=== PATIENT | female | born 1980 | race Caucasian/White ===

== ENCOUNTER → 2016-10-21 | Outpatient (CLI) | payer OTHER ==
--- NOTE | 2016-10-21 15:19 | KCIC ---
Ultrasound Pelvis Indication:Reason For Study Reason: / Spl. Instructions: / History: Technique: Multiple real-time grayscale images were obtained over the pelvis transabdominally and transvaginally. Color Doppler imaging was utilized. Findings: The uterus is normal in size measuring 8.6 x 6.2 x 5.3 cm. There is a single intrauterine gestational sac with mean diameter measuring 0.52 centimeters. This corresponds to an estimated gestational age of 5 weeks 2 days. The pole is not yet identified. The right ovary measures 3.2 x 2.0 x 2.7cm. No abnormal right ovarian lesions are identified. Normal blood flow is identified. The left ovary measures 2.4 x 1.5 x 1.7cm. No abnormal left ovarian lesions are identified. Normal blood flow is identified. No pelvic free fluid is identified. Impression: - Intrauterine gestational sac with estimated gestational age 5 weeks 2 days. The pole is not yet visualized. Electronically signed by: Kvng Gaona (Oct 21, 2016 15:18:51)
== END | disposition home or self-care (01) ==
LOC: KCIC US 14:34
PROVIDERS: ATTEND Nurse Practitioner Women's Health
DX: Z32.01 Encounter for pregnancy test, result positive (principal); Z3A.14 14 weeks gestation of pregnancy
CPT/HCPCS: 76801; 76817

== ENCOUNTER → 2016-11-01 | Outpatient (CLI) | payer OTHER ==
--- NOTE | 2016-11-04 09:46 | KCIC ---
PROCEDURE Obstetrics sonogram. HISTORY Viability scan. TECHNIQUE Trans abdominal and transvaginal sonographic imaging of the pelvis was performed. COMPARISON 10/21/2016. FINDINGS There is a single intrauterine gestational sac and pole with yolk sac. The crown-rump length is 0.69 cm, corresponding with an estimated gestational age of 6 weeks and 4 days. The heart rate is 114 beats per minute. The uterus measures 9.2 x 5.7 x 5.5 cm. The right ovary measures 3.4 x 2.8 x 1.6 cm. The left ovary measures 1.9 x 2.6 x 1.5 cm. There is normal blood flow within both ovaries. There is a suspected 1.9 cm right corpus luteum cyst. There is a hypoechoic region within the posterior lower uterine segment measuring 7 mm. There is no pelvic free fluid. IMPRESSION 1. Single intrauterine fetus with an estimated gestational age based on ultrasound measurements of 6 weeks and 4 days and heart rate of 114 beats per minute. 2. Suspected 1.9 cm right corpus luteum cyst. 3. 7 mm hypoechoic region within the posterior lower uterine segment. This may be due to a small fibroid. Electronically signed by: Amanda Wahl (Nov 04, 2016 09:45:31)
== END | disposition home or self-care (01) ==
LOC: KCIC US 15:41
PROVIDERS: ATTEND Nurse Practitioner Women's Health
DX: Z34.81 Encounter for supervision of other normal pregnancy, first trimester (principal)
CPT/HCPCS: 76801

== ENCOUNTER → 2016-11-07 | Outpatient (CLI) | payer OTHER | END | disposition home or self-care (01) | LOC: SPEC 11:07 | PROVIDERS: ATTEND Nurse Practitioner Women's Health | DX: Z11.3 Encounter for screening for infections with a predominantly sexual mode of transmission (principal); R82.99 Other abnormal findings in urine | CPT/HCPCS: 87086; 87491; 87591 ==

== ENCOUNTER → 2016-12-02 | Outpatient (CLI) | payer OTHER ==
[2016-12-02 11:40] LABS: FREE T4 0.87 ng/dL (0.76-1.46)
== END | disposition home or self-care (01) ==
LOC: LAB 10:35
PROVIDERS: ATTEND Nurse Practitioner Women's Health
DX: Z34.81 Encounter for supervision of other normal pregnancy, first trimester (principal); Z20.2 Contact with and (suspected) exposure to infections with a predominantly sexual mode of transmission
CPT/HCPCS: 36415; 84439; 84443; 84481; 86593; 86703; 86762; 86803; 86900; 86901; 87340; 87341; 87491; 87591

== ENCOUNTER 2017-01-17 02:49 | Emergency (ER) | payer OTHER ==
[~2017-01-17] VITALS: Ht 160 cm; Wt 75.3 kg
--- NOTE | 2017-01-17 03:20 | PHYS DOC ---
Adult General Chief Complaint Chief Complaint: ABDOMINAL PAIN IN HPI HPI Patient is a 36 year old female who presents with complaint of right lower quadrant abdominal pain. Patient is approximately 17 weeks . Patient was seen yesterday morning at [facility] due to complaint of right lower quadrant pain. Patient had an ultrasound which showed a viable intrauterine . Blood work and urine did not show any significant abnormalities. Patient was treated for her pain. Patient was cautioned due to proximity of pain that if symptoms worsened that she would need reevaluation as she was told appendicitis could not be ruled out at that time. Patient states that she has had associated nausea. Patient stated that 2 days ago she had vomiting but did not have any vomiting yesterday. Patient states that she has had low-grade fever of 99.9F. Patient denies cough or chills. Patient states that she took Tylenol yesterday afternoon but has not had any additional medication within the last few hours for pain. Patient rates pain currently as 7 out of 10. Patient follows in the office of Dr. Briones for her care. Review of Systems Review of Systems Constitutional: Denies fever or chills [] Eyes: Denies change in visual acuity, redness, or eye pain [] HENT: Denies nasal congestion or sore throat [] Respiratory: Denies cough or shortness of breath [] Cardiovascular: Denies chest pain or edema [] GI: Abdominal pain, nausea, currently denies vomiting, bloody stools or diarrhea [] : Denies dysuria or hematuria [] Musculoskeletal: Denies back pain or joint pain [] Integument: Denies rash or skin lesions [] Neurologic: Denies headache, focal weakness or sensory changes [] Current Medications Current Medications Current Medications Medications (Trade) Dose Ordered Sig/[facility] Start Time Stop Time Status Last Admin Dose Admin Acetaminophen (Tylenol) 1,000 mg 1X ONCE 01/17/17 03:45 01/17/17 03:46 DC 01/17/17 03:44 1,000 MG Azithromycin (Zithromax) 1,000 mg 1X ONCE 01/17/17 04:30 01/17/17 04:31 DC Ceftriaxone Sodium (Rocephin Im) 250 mg 1X ONCE 01/17/17 04:30 01/17/17 04:31 DC Ondansetron HCl (Zofran Odt) 4 mg 1X ONCE 01/17/17 03:45 01/17/17 03:46 DC 01/17/17 03:44 4 MG Potassium Chloride (Klor-Con) 40 meq 1X ONCE 01/17/17 04:30 01/17/17 04:31 DC Allergies Allergies Allergies Coded Allergies Type Severity Reaction Last Updated Verified No Known Drug Allergies 01/17/17 No Physical Exam Physical Exam Constitutional: Well developed, well nourished, no acute distress, non-toxic appearance. [] HENT: Normocephalic, atraumatic, bilateral external ears normal, oropharynx moist, no oral exudates, nose normal. [] Eyes: PERRLA, EOMI, conjunctiva normal, no discharge. [] Neck: Normal range of motion, no tenderness, supple, no stridor. [] Cardiovascular:Heart rate regular rhythm, no murmur [] Lungs & Thorax: Bilateral breath sounds clear to auscultation [] Abdomen: Bowel sounds normal, fundal height at level of umbilicus, no tenderness , no masses, no pulsatile masses. Pelvic: Normal external exam, scant amount of subcutaneous blood present in vaginal canal, cervical os closed, no cervical motion tenderness, midline and right adnexal tenderness to palpation on bimanual exam [] Skin: Warm, dry, no erythema, no rash. [] Back: No tenderness, no CVA tenderness. [] Extremities: No tenderness, no cyanosis, no clubbing, ROM intact, no edema. [] Neurologic: Alert and oriented X 3, normal motor function, normal sensory function, no focal deficits noted. [] Current Patient Data Vital Signs Vital Signs Date Time Temp Pulse Resp B/P (MAP) Pulse Ox O2 Delivery O2 Flow Rate FiO2 01/17/17 02:55 98.6 85 16 111/56 (74) 99 Room Air 98.6 Lab Values Laboratory Tests Test 01/17/17 02:04 01/17/17 02:59 01/17/17 03:30 POC Urine HCG, Qualitative Hcg positive (Negative) Urine Collection Type Unknown Urine Color Yellow Urine Clarity Clear Urine pH 6.0 Urine Specific [place] 1.020 Urine Protein Negative mg/dL (NEG-TRACE) Urine Glucose (UA) Negative mg/dL (NEG) Urine Ketones (Stick) Negative mg/dL (NEG) Urine Blood Negative (NEG) Urine Nitrite Negative (NEG) Urine Bilirubin Negative (NEG) Urine Urobilinogen Dipstick 0.2 mg/dL (0.2 mg/dL) Urine Leukocyte Esterase Negative (NEG) Urine RBC 0 /HPF (0-2) Urine WBC 1-4 /HPF (0-4) Urine Squamous Epithelial Cells Many /LPF Urine Bacteria Few /HPF (0-FEW) Urine Mucus Marked /LPF White Blood Count 10.9 x10^3/uL (4.0-11.0) Red Blood Count 3.50 x10^6/uL (3.50-5.40) Hemoglobin 10.5 g/dL (12.0-15.5) L Hematocrit 29.9 % (36.0-47.0) L Mean Corpuscular Volume 85 fL (79-100) Mean Corpuscular Hemoglobin 30 pg (25-35) Mean Corpuscular Hemoglobin Concent 35 g/dL (31-37) Red Cell Distribution Width 14.4 % (11.5-14.5) Platelet Count 218 x10^3/uL (140-400) Neutrophils (%) (Auto) 66 % (31-73) Lymphocytes (%) (Auto) 28 % (24-48) Monocytes (%) (Auto) 5 % (0-9) Eosinophils (%) (Auto) 1 % (0-3) Basophils (%) (Auto) 0 % (0-3) Neutrophils # (Auto) 7.2 x10^3uL (1.8-7.7) Lymphocytes # (Auto) 3.0 x10^3/uL (1.0-4.8) Monocytes # (Auto) 0.5 x10^3/uL (0.0-1.1) Eosinophils # (Auto) 0.1 x10^3/uL (0.0-0.7) Basophils # (Auto) 0.0 x10^3/uL (0.0-0.2) Sodium Level 141 mmol/L (136-145) Potassium Level 3.1 mmol/L (3.5-5.1) L Chloride Level 106 mmol/L (98-107) Carbon Dioxide Level 24 mmol/L (21-32) Anion Gap 11 (6-14) Blood Urea Nitrogen 5 mg/dL (7-20) L Creatinine 0.5 mg/dL (0.6-1.0) L Estimated GFR (Cockcroft-Gault) 141.2 Glucose Level 79 mg/dL (70-99) Calcium Level 8.1 mg/dL (8.5-10.1) L Laboratory Tests 01/17/17 03:30 Laboratory Tests 01/17/17 03:30 Microbiology 01/17/17 Wet Prep - Final, Complete EKG EKG Not performed [] Radiology/Procedures Radiology/Procedures Not performed [] Course & Med Decision Making Course & Med Decision Making Pertinent Labs and Imaging studies reviewed. (See chart for details) heart tones were reviewed and were within normal limits. Patient's exam does not appear consistent with acute appendicitis. Patient has tenderness on her pelvic exam and has white blood cells present on her wet prep. Patient will be treated empirically with Rocephin and azithromycin to cover for potential sexually transmitted infection. Patient also shows evidence of bacteriuria. Patient will continue on Macrobid as outpatient for treatment. Patient's low potassium level was supplemented in the emergency department with oral potassium. Advise follow-up with the patient's provider in the next 2- 3 days and return to the emergency department for any worsening symptoms. Patient voiced understanding and in agreement with treatment plan. Dragon Disclaimer Dragon Disclaimer This electronic medical record was generated, in whole or in part, using a voice recognition dictation system. Departure Departure Impression: Primary Impression: Bacteriuria Additional Impression: Abdominal pain during Disposition: 01 HOME, SELF-CARE Condition: IMPROVED Referrals: BATOOL BRYAN (PCP) Patient Instructions: Abdominal Pain During Additional Instructions: Follow-up with your doctor in the next 2-3 days. Return to the emergency department for any worsening symptoms. Scripts Nitrofurantoin Monohyd/M-Cryst (MACROBID 100 MG CAPSULE) 100 Mg Capsule 1 CAP PO BID, #14 CAP Prov: RADHA BLUNT MD 01/17/17 Problem Qualifiers Additional Impression: Abdominal pain during Trimester: second trimester Qualified Codes: O26.892 - Other specified related conditions, second trimester; R10.9 - Unspecified abdominal pain RADHA BLUNT MD January 17, 2017 03:20
[2017-01-17 03:23] LABS: BILIRUBIN,URINE NEGATIVE (NEG); GLUCOSE,URINE NEGATIVE (NEG); NITRITE,URINE NEGATIVE (NEG); PROTEIN,URINE NEGATIVE (NEG-TRACE); UROBILINOGEN,URINE 0.2 mg/dL (0.2 mg/dL)
[2017-01-17 03:31] LABS: BACTERIA,URINE FEW /HPF (0-FEW); RBC,URINE 0 /HPF (0-2); SQUAMOUS EPITHELIAL CELL,UR MANY /LPF
[2017-01-17 03:39] LABS: BASO % 0 % (0-3); EOS % 1 % (0-3); HEMATOCRIT 29.9 % (36.0-47.0); HEMOGLOBIN 10.5 g/dL (12.0-15.5); LYMPH % 28 % (24-48); MEAN CORPUSCULAR HEMOGLOBIN 30 pg (25-35); MEAN CORPUSCULAR HGB CONC 35 g/dL (31-37); MEAN CORPUSCULAR VOLUME 85 fL (79-100); MONO % 5 % (0-9); NEUT % 66 % (31-73); PLATELET COUNT 218 x10^3/uL (140-400); RED CELL DISTRIBUTION WIDTH 14.4 % (11.5-14.5); WHITE BLOOD COUNT 10.9 x10^3/uL (4.0-11.0)
[2017-01-17] MEDS ORDERED: ACETAMINOPHEN 500 MG TABLET PO ONE (03:45)
[2017-01-17] MEDS ORDERED: ONDANSETRON ODT 4 MG TAB.RAPDIS. PO ONE (03:45)
[2017-01-17 03:57] LABS: CALCIUM 8.1 mg/dL (8.5-10.1); CREATININE 0.5 mg/dL (0.6-1.0); GFR 141.2; POTASSIUM 3.1 mmol/L (3.5-5.1)
[2017-01-17 04:00] VITALS: BP 108/63
[2017-01-17] MEDS ORDERED: NITR100C62 PO (04:25)
[2017-01-17] MEDS ORDERED: AZITHROMYCIN 250 MG TABLET. PO ONE (04:30)
[2017-01-17] MEDS ORDERED: cefTRIAXone IM 250 MG VIAL IM ONE (04:30)
[2017-01-17] MEDS ORDERED: POTASSIUM CHLORIDE 20 MEQ TABLET.ER. PO ONE (04:30)
== END 2017-01-17 05:00 | disposition home or self-care (01) ==
LOC: ER 02:49
DX: O26.891 Other specified pregnancy related conditions, first trimester (principal); R10.31 Right lower quadrant pain; O28.8 Other abnormal findings on antenatal screening of mother; R82.71 Bacteriuria; R11.0 Nausea; Z3A.17 17 weeks gestation of pregnancy
CPT/HCPCS: 36415; 80048; 81001; 84703; 85027; 87491; 87591; 96372; 99284; J0696; Q0111; Q0144; Q0162; 81025

== ENCOUNTER → 2017-01-24 | Outpatient (CLI) | payer OTHER ==
[2017-01-17 04:00] VITALS: BP 108/63
[~2017-01-24] MED LIST: NITR100C62 PO
--- NOTE | 2017-01-24 15:48 | KCIC ---
Clinical Indication: Screening. Provided LMP was 09/16/2016, consistent with JERAD of 06/23/2017. Technique:Transabdominal imaging was performed. Findings: There is a single intrauterine gestation in cephalic presentation. The placenta is anterior in location without evidence of placental previa. HI measured 10.7. This value is within normal limits. Biometrical data is as follows: BPD = 4.16 cm, with a corresponding gestational age of 18 weeks 4 days. HC = 15.14 cm, with a corresponding gestational age of 18 weeks 1 days. AC = 13.81 cm, with a corresponding gestational age of 19 weeks 2 days. FL = 2.87 cm, with a corresponding gestational age of 18 weeks 6 days. Ratio of head circumference to abdominal circumference is 1.10. Cephalic index is 83.9. Normal range is 70% to 86%. Overall, the estimated sonographic gestational age is 18 weeks 5 days for an estimated date of delivery of 06/22/2017. Estimated weight is 265 Grams. survey was performed. A four chamber heart is identified with positive cardiac activity. The estimated heart rate is 139 beats per minute. There is a three-vessel cord with cord insertion visualized. stomach and urinary bladder are identified. Both kidneys are seen. IMPRESSION: Single intrauterine gestation with estimated sonographic gestational age of 18 weeks 5 days with estimated date of delivery 06/22/2017. Electronically signed by: Kvng Gaona MD (01/24/2017 3:45 PM)
== END | disposition home or self-care (01) ==
LOC: KCIC US 14:21
PROVIDERS: ATTEND Nurse Practitioner Women's Health
DX: Z34.82 Encounter for supervision of other normal pregnancy, second trimester (principal); Z3A.18 18 weeks gestation of pregnancy
CPT/HCPCS: 76805

== ENCOUNTER → 2017-03-31 | Outpatient (CLI) | payer OTHER ==
--- NOTE | 2017-03-31 14:16 | KCIC ---
OB ultrasound dated 03/31/2017: No comparison available. Clinical Indication: survey. Findings: There is a single intrauterine gestation in transverse/breech presentation. The placenta is anterior and right lateral in location without evidence of placental previa. The amount of amniotic fluid appears appropriate. HI equals 16.1 cm. Cervical length is estimated at 3.8 cm. Biometrical data is as follows: BPD = 7.0 cm for 28 weeks 2 days. HC = 25.6 cm for 27 weeks 6 days. AC = 23.6 cmfor 27 weeks 6 days. FL = 5.1 cm for 27 weeks 3 days. Overall, the estimated sonographic gestational age is 27 weeks 6 days for an estimated date of delivery of 06/24/2017. This is within one day of the estimated date of delivery provided by the last menstrual period. Estimated weight 1119 g +/- 166 g. Positive movement and cardiac activity. Estimated heart rate 1 31 bpm. Visualized portions of the brain unremarkable. Cisterna magna measures 7 mm. This is portions of the spine unremarkable. stomach, urinary bladder and both kidneys are seen. extremity's are not well evaluated due to position. Four-chamber heart. Impression: 1. Single viable intrauterine gestation with estimated sonographic gestational age of 27 weeks 6 days. No acute findings. 2. Limited survey due to positioning. 3. Amniotic fluid volume is upper limits of normal. Electronically signed by: Catrachito Shipman MD (03/31/2017 2:12 PM) [facility]-KCIC2
== END | disposition home or self-care (01) ==
LOC: KCIC US 12:58
PROVIDERS: ATTEND Family Medicine
DX: O26.12 Low weight gain in pregnancy, second trimester (principal); Z3A.27 27 weeks gestation of pregnancy
CPT/HCPCS: 76805

== ENCOUNTER 2017-04-27 00:30 | Observation (INO) | payer OTHER ==
[2017-04-27 01:39] LABS: BILIRUBIN,URINE NEGATIVE (NEG); GLUCOSE,URINE NEGATIVE (NEG); NITRITE,URINE NEGATIVE (NEG); PROTEIN,URINE NEGATIVE (NEG-TRACE); UROBILINOGEN,URINE 0.2 mg/dL (0.2 mg/dL)
[2017-04-27 01:47] LABS: BACTERIA,URINE MODERATE /HPF (0-FEW); RBC,URINE 0 /HPF (0-2); SQUAMOUS EPITHELIAL CELL,UR MOD /LPF; YEAST,URINE PRESENT /HPF
[2017-04-27] MEDS ORDERED: hydrOXYzine PAMOATE 25 MG CAPSULE PO ONE (02:30)
== END 2017-04-27 02:25 | disposition home or self-care (01) ==
LOC: 3 SO LND 00:30
PROVIDERS: ADMIT Family Medicine; ATTEND Family Medicine
DX: O26.893 Other specified pregnancy related conditions, third trimester (principal); R10.9 Unspecified abdominal pain; M54.9 Dorsalgia, unspecified; R10.2 Pelvic and perineal pain; Z3A.32 32 weeks gestation of pregnancy
CPT/HCPCS: 81001; G0378; G0379; Q0177; 87086

== ENCOUNTER 2017-06-10 14:41 | Inpatient (IN) | payer OTHER ==
[~2017-06-10] VITALS: Ht 160 cm; Wt 79.4 kg
[2017-06-10 15:30] VITALS: BP 128/87
[2017-06-10 15:39] LABS: NEG OBC AMNIO NEG; POS OBC AMNIO POS
[2017-06-10] MEDS ORDERED: 0.9 % SODIUM CHLORIDE 10 ML DISP.SYRIN. IV PRN ×2 (16:15→18:15)
[2017-06-10] MEDS ORDERED: LIDOCAINE 1% PF 30 ML VIAL. INJ PRN (16:15)
[2017-06-10] MEDS ORDERED: IV RINGERS,LACTATED 1000ML 1,000 ML IV PRN (16:15)
[2017-06-10] MEDS ORDERED: fentaNYL PF VIAL 100 MCG/2 ML VIAL IV PRN (16:15)
[2017-06-10] MEDS ORDERED: OXYTOCIN 30 UNIT/500 ML PREMIX 500 ML IV PRN ×2 (16:15→18:15)
[2017-06-10] MEDS ORDERED: PNV1TABL25 PO (16:21)
[2017-06-10] MEDS ORDERED: FERR-26 PO (16:21)
[2017-06-10] MEDS ORDERED: AMPICILLIN SODIUM 2 GM in IV NORMAL SALINE 100ML 100 ML IV ONE (16:30)
[2017-06-10 17:05] LABS: BASO % 0 % (0-3); EOS % 1 % (0-3); HEMATOCRIT 32.8 % (36.0-47.0); HEMOGLOBIN 11.4 g/dL (12.0-15.5); LYMPH # 3.2 x10^3/uL (1.0-4.8); LYMPH % 23 % (24-48); MEAN CORPUSCULAR HEMOGLOBIN 30 pg (25-35); MEAN CORPUSCULAR HGB CONC 35 g/dL (31-37); MEAN CORPUSCULAR VOLUME 87 fL (79-100); MONO % 6 % (0-9); NEUT % 71 % (31-73); PLATELET COUNT 191 x10^3/uL (140-400); RED BLOOD COUNT 3.77 x10^6/uL (3.50-5.40); RED CELL DISTRIBUTION WIDTH 14.2 % (11.5-14.5); WHITE BLOOD COUNT 14.1 x10^3/uL (4.0-11.0)
[2017-06-10] MEDS ORDERED: MAGNESIUM HYDROXIDE 2,400 MG/30 ML ORAL.SUSP. PO PRN (18:15)
[2017-06-10] MEDS ORDERED: BENZOCAINE 20% TOPICAL AEROSOL SPRAY 57GM CAN. TP PRN (18:15)
[2017-06-10] MEDS ORDERED: HYDROCORTISONE 1% TOPICAL OINTMENT 30GM TUBE. TP PRN (18:15)
[2017-06-10] MEDS ORDERED: ACETAMINOPHEN 325 MG TABLET. PO PRN (18:15)
[2017-06-10] MEDS ORDERED: diphenhydrAMINE HCL 25 MG CAPSULE PO PRN (18:15)
[2017-06-10] MEDS ORDERED: MAG HYDROX/ALUMINUM HYD/SIMETH 30 ML ORAL.SUSP PO PRN (18:15)
[2017-06-10] MEDS ORDERED: PHENYLEPH/MINERAL OIL/PETROLAT RECTAL OINTMENT 28GM TUBE. RC PRN (18:15)
[2017-06-10] MEDS ORDERED: SIMETHICONE 80 MG TAB.CHEW PO PRN (18:15)
[2017-06-10] MEDS ORDERED: HYDROcodone/APAP 5/325MG 1 TAB TABLET PO PRN ×2 (18:15)
[2017-06-10] MEDS ORDERED: ZOLPIDEM 5 MG TABLET. PO PRN (18:15)
[2017-06-10 20:15] VITALS: BP 121/84
[2017-06-10] MEDS ORDERED: AMPICILLIN SODIUM 1 GM in IV NORMAL SALINE 50ML 50 ML IV SCH (20:30)
[2017-06-10 21:25] VITALS: BP 121/58
[2017-06-10] MEDS ORDERED: IBUPROFEN 800 MG TABLET. PO SCH (22:00)
[2017-06-10] MEDS ORDERED: INFLUENZA VAX SCREEN BY RX. MC PRN (22:00)
--- NOTE | 2017-06-10 22:20 | PDOC1 ---
OB - History Hx of Present Care: Good Care Ultrasounds: Normal mid trimester US Obstetrical Complications: Other (Hx labor, STD hx,hx Recent bariatric surgery ) Other Concerns: Advanced maternal age, Thyroid Dz Past Family/Social History * Past Medical, Surgical, Family and Obstetric Histories reviewed from chart. Blood Type: O- Rubella: Immune RPR/VDRL: Negative GBS Status: Positive HBsAG: Negative OB - Chief Complaint & HPI Date of Admission: Date of Admission: Jun 10, 2017 at 14:41 Chief Complaint/History : 7 Para: Sab 3 1 EDC: Jun 21, 2017 Reason for admission: active labor Admission Nurse Assessment Rev: Yes Problems: OB - Admission Exam Physical Exam Vitals: VS - Last 72 Hours, by Label Date Time Temp Pulse Resp B/P (MAP) Pulse Ox O2 Delivery O2 Flow Rate FiO2 06/10/17 21:25 98.2 73 18 121/58 (79) 98 Room Air 98.2 06/10/17 20:15 97.9 70 18 121/84 (96) 98 Room Air 97.9 06/10/17 17:48 20 06/10/17 15:30 98.5 70 20 128/87 (101) 98.5 HEENT: Normal Heart: Regular Rate Lungs: Clear Abdomen: Gravid Extremities: Normal Pulses Reflexes: Normal Cervical Dilatation: 4cm Effacement: 75% Station: 0 Membranes: Ruptured Amniotic Fluid: Clear Heart Rate: Normal Accelerations: Accelerations Present Decelerations: No decelerations Short Term Variability: Present Pitch Gatherer Variability: Moderate Contractions on Admission: < 5 Minutes Apart Intensity: Moderate TREY PRAKASH MD Jun 10, 2017 22:20
--- NOTE | 2017-06-10 23:05 | OP ---
DATE OF SURGERY: 06/10/2017 CLINICAL COURSE: This patient is a 37-year-old female AB3, live children 3 with history of 1 delivery, admitted in term labor with EDC of 06/21/2017. The patient had multiple risk factors during including advanced maternal age, history of recent bariatric surgery, history of STDs, history of labor, GBS positive status, Rh negative blood type and underlying thyroid disease. The patient did have uncomplicated course despite these risks factors and appeared in spontaneous labor with artificial rupture of membranes within 1 hour of coming to the hospital with clear fluid noted by nursing staff. She progressed through labor quickly delivering precipitously within less than 2 hours of arrival to the hospital, delivering a viable male infant in the OA presentation. Mother had no anesthesia. Infant head was delivered and suctioned. Subsequently, the body was delivered and resuctioned. Cord resuscitation was done for 30 seconds and clamped. Cord was cut and was handed off to mother and nursery staff. Cord blood was obtained. Placenta was delivered intact with 3-vessel cord. Uterus was firm with Pitocin and palpation. There was a left-sided periurethral laceration, which was sutured with 3-0 chromic in a running fashion. There was excellent hemostasis. Inspection of the vaginal vault revealed no further laceration. Cervix intact. Good hemostasis with palpation of the uterus and Pitocin. Approximately 250 mL blood loss at the time of delivery. Mother and baby to recovery in a stable condition. TREY PRAKASH MD DR: NETO/david JOB#: [id number] / [id number]
[2017-06-11 01:32] VITALS: BP 117/79
[2017-06-11] MEDS: IBUPROFEN 800 MG TABLET. PO PRN ×2 (02:36→18:03)
[2017-06-11 05:11] LABS: BASO % 0 % (0-3); EOS % 1 % (0-3); HEMATOCRIT 28.4 % (36.0-47.0); HEMOGLOBIN 9.9 g/dL (12.0-15.5); LYMPH # 2.9 x10^3/uL (1.0-4.8); LYMPH % 20 % (24-48); MEAN CORPUSCULAR HEMOGLOBIN 30 pg (25-35); MEAN CORPUSCULAR HGB CONC 35 g/dL (31-37); MEAN CORPUSCULAR VOLUME 87 fL (79-100); MONO % 7 % (0-9); NEUT % 72 % (31-73); PLATELET COUNT 172 x10^3/uL (140-400); RED BLOOD COUNT 3.28 x10^6/uL (3.50-5.40); RED CELL DISTRIBUTION WIDTH 13.8 % (11.5-14.5); WHITE BLOOD COUNT 14.5 x10^3/uL (4.0-11.0)
[2017-06-11 05:12] VITALS: BP 99/61
[2017-06-11 06:18] LABS: RPR REFLEX Non Reactive (Non Reactive)
[2017-06-11] MEDS ORDERED: FERROUS SULFATE 325 MG TABLET. PO SCH ×3 (08:00→17:15)
[2017-06-11] MEDS ORDERED: FLU VACC QS2017-18 (36MOS+)/PF 0.5 ML SYRINGE. VAX IM ONE (09:00)
[2017-06-11] MEDS ORDERED: DIPHTH,PERTUSS(ACELL),TET TOX 0.5 ML DISP.SYRIN. VAX IM ONE (09:00)
[2017-06-11] MEDS: PRENATAL MULTIVITAMIN TABLET. PO SCH (10:18)
[2017-06-11 11:39] VITALS: BP 128/91
--- NOTE | 2017-06-11 11:58 | PDOC ---
PROGRESS NOTES Subjective Subjective day #1. Patient doing well decreased bleeding and pain. An bleeding and tolerating diet. Objective Objective Vital Signs Date Time Temp Pulse Resp B/P (MAP) Pulse Ox O2 Delivery O2 Flow Rate FiO2 06/11/17 11:39 98.1 72 18 128/91 (103) 100 Room Air 98.1 Intake and Output 06/12/17 06:59 # Voids 1 Physical Exam Abdomen: Normal bowel sounds Heart: Regular rate Extremities: No edema General: Alert Lungs: Clear to auscultation Assessment Assessment day #1. Plan Plan of Care Routine care continue iron and vitamins. Comment Review of Relevant I have reviewed the following items tasha (where applicable) has been applied. Labs Laboratory Tests Test 06/10/17 15:15 06/10/17 16:50 06/11/17 04:45 Amniotic Fluid Swab Test Positive White Blood Count 14.1 x10^3/uL (4.0-11.0) 14.5 x10^3/uL (4.0-11.0) Red Blood Count 3.77 x10^6/uL (3.50-5.40) 3.28 x10^6/uL (3.50-5.40) Hemoglobin 11.4 g/dL (12.0-15.5) 9.9 g/dL (12.0-15.5) Hematocrit 32.8 % (36.0-47.0) 28.4 % (36.0-47.0) Mean Corpuscular Volume 87 fL (79-100) 87 fL (79-100) Mean Corpuscular Hemoglobin 30 pg (25-35) 30 pg (25-35) Mean Corpuscular Hemoglobin Concent 35 g/dL (31-37) 35 g/dL (31-37) Red Cell Distribution Width 14.2 % (11.5-14.5) 13.8 % (11.5-14.5) Platelet Count 191 x10^3/uL (140-400) 172 x10^3/uL (140-400) Neutrophils (%) (Auto) 71 % (31-73) 72 % (31-73) Lymphocytes (%) (Auto) 23 % (24-48) 20 % (24-48) Monocytes (%) (Auto) 6 % (0-9) 7 % (0-9) Eosinophils (%) (Auto) 1 % (0-3) 1 % (0-3) Basophils (%) (Auto) 0 % (0-3) 0 % (0-3) Neutrophils # (Auto) 9.9 x10^3uL (1.8-7.7) 10.4 x10^3uL (1.8-7.7) Lymphocytes # (Auto) 3.2 x10^3/uL (1.0-4.8) 2.9 x10^3/uL (1.0-4.8) Monocytes # (Auto) 0.9 x10^3/uL (0.0-1.1) 1.0 x10^3/uL (0.0-1.1) Eosinophils # (Auto) 0.1 x10^3/uL (0.0-0.7) 0.1 x10^3/uL (0.0-0.7) Basophils # (Auto) 0.0 x10^3/uL (0.0-0.2) 0.0 x10^3/uL (0.0-0.2) RPR Titer Additional Testing Non reactive (Non Reactive) Laboratory Tests Test 06/10/17 15:15 06/10/17 16:50 06/11/17 04:45 Amniotic Fluid Swab Test Positive White Blood Count 14.1 x10^3/uL (4.0-11.0) 14.5 x10^3/uL (4.0-11.0) Red Blood Count 3.77 x10^6/uL (3.50-5.40) 3.28 x10^6/uL (3.50-5.40) Hemoglobin 11.4 g/dL (12.0-15.5) 9.9 g/dL (12.0-15.5) Hematocrit 32.8 % (36.0-47.0) 28.4 % (36.0-47.0) Mean Corpuscular Volume 87 fL (79-100) 87 fL (79-100) Mean Corpuscular Hemoglobin 30 pg (25-35) 30 pg (25-35) Mean Corpuscular Hemoglobin Concent 35 g/dL (31-37) 35 g/dL (31-37) Red Cell Distribution Width 14.2 % (11.5-14.5) 13.8 % (11.5-14.5) Platelet Count 191 x10^3/uL (140-400) 172 x10^3/uL (140-400) Neutrophils (%) (Auto) 71 % (31-73) 72 % (31-73) Lymphocytes (%) (Auto) 23 % (24-48) 20 % (24-48) Monocytes (%) (Auto) 6 % (0-9) 7 % (0-9) Eosinophils (%) (Auto) 1 % (0-3) 1 % (0-3) Basophils (%) (Auto) 0 % (0-3) 0 % (0-3) Neutrophils # (Auto) 9.9 x10^3uL (1.8-7.7) 10.4 x10^3uL (1.8-7.7) Lymphocytes # (Auto) 3.2 x10^3/uL (1.0-4.8) 2.9 x10^3/uL (1.0-4.8) Monocytes # (Auto) 0.9 x10^3/uL (0.0-1.1) 1.0 x10^3/uL (0.0-1.1) Eosinophils # (Auto) 0.1 x10^3/uL (0.0-0.7) 0.1 x10^3/uL (0.0-0.7) Basophils # (Auto) 0.0 x10^3/uL (0.0-0.2) 0.0 x10^3/uL (0.0-0.2) RPR Titer Additional Testing Non reactive (Non Reactive) Medications Current Medications Sodium Chloride (Normal Saline Flush) 3 ml QSHIFT PRN IV AFTER MEDS AND BLOOD DRAWS; Start 06/10/17 at 16:15; Stop 06/11/17 at 07:53; Status DC Ringer's Solution 1,000 ml @ 125 mls/hr Q8H PRN IV PER PROTOCOL Last administered on 06/10/17 17:47; Start 06/10/17 at 16:15; Stop 06/11/17 at 07 :53; Status DC Fentanyl Citrate (Fentanyl 2ml Vial) 100 mcg PRN Q1HR PRN IV Severe pain Last administered on 06/10/17 17:48; Start 06/10/17 at 16:15; Stop 06/11/17 at 07 :53; Status DC Lidocaine HCl 30 ml 1X PRN PRN INJ SEE COMMENTS; Start 06/10/17 at 16:15; Stop 06/11/17 at 07:53; Status DC Ampicillin Sodium 2 gm/Sodium Chloride 100 ml @ 200 mls/hr 1X ONCE IV ; Start 06/10/17 at 16:30; Stop 06/11/17 at 09:31; Status DC Ampicillin Sodium 1 gm/Sodium Chloride 50 ml @ 100 mls/hr Q4H IV ; Start 06/10 at 20:30; Stop 06/11/17 at 07:53; Status DC Oxytocin/Sodium Chloride 500 ml @ 0 mls/hr CONT PRN PRN IV Post delivery bleeding Last administered on 06/10/17 17:48; Start 06/10/17 at 16:15; Stop 06/11/17 at 07:53; Status DC Ibuprofen (Motrin) 800 mg PRN Q6HRS PRN PO PAIN Last administered on 02:36; Start 06/10/17 at 16:15 Sodium Chloride (Normal Saline Flush) 10 ml QSHIFT PRN IV AFTER MEDS AND BLOOD DRAWS; Start 06/10/17 at 18:15; Stop 06/11/17 at 07:53; Status DC Oxytocin/Sodium Chloride 500 ml @ 62.5 mls/hr CONT PRN IV SEE I/O RECORD; Start 06/10/17 at 18:15; Stop 06/11/17 at 02:14; Status DC Acetaminophen (Tylenol) 650 mg PRN Q6HRS PRN PO MILD PAIN / TEMP; Start at 18:15 Ibuprofen (Motrin) 800 mg Q8HRS PO Last administered on 06/10/17 19:34; Start 06/10/17 at 22:00 Magnesium Hydroxide (Milk Of Magnesia) 2,400 mg PRN DAILY PRN PO CONSTIPATION; Start 06/10/17 at 18:15 Al Hydroxide/Mg Hydroxide (Mylanta Plus Xs) 30 ml PRN Q4HRS PRN PO HEARTBURN / GAS; Start 06/10/17 at 18:15 Simethicone (Gas-X) 80 mg PRN AFTMEALHC PRN PO GAS / BLOATING; Start 06/10/17 at 18:15 Diphenhydramine HCl (Benadryl) 25 mg PRN Q6HRS PRN PO ITCHING; Start 06/10/17 at 18:15 Benzocaine (Americaine) 1 spray PRN QID PRN TP TOPICAL PAIN Last administered on 06/10/17 19:34; Start 06/10/17 at 18:15 Phenyleph/Shark Oil/Min Oil/Petrol (Preparation H) 1 zeke PRN QID PRN RC RECTAL PAIN; Start 06/10/17 at 18:15 Hydrocortisone (Cortaid) 1 zeke PRN QID PRN TP PERINEAL PAIN; Start 06/10/17 at 18:15 Ferrous Sulfate (Feosol) 325 mg BIDWMEALS PO Last administered on 06/11/17 10 :19; Start 06/11/17 at 08:00 Zolpidem Tartrate (Ambien) 5 mg PRN QHS PRN PO INSOMNIA, MAY REPEAT X1; Start 06/10/17 at 18:15 Info (Do NOT chart on this placeholder) 1 ea 1X PRN PRN MC SEE COMMENTS; Start 06/10/17 at 18:15 Acetaminophen/ Hydrocodone Bitart (Lortab 5/325) 1 tab PRN Q4HRS PRN PO MILD PAIN; Start 06/10/17 at 18:15 Acetaminophen/ Hydrocodone Bitart (Lortab 5/325) 2 tab PRN Q4HRS PRN PO MODERATE PAIN, SEVERE PAIN; Start 06/10/17 at 18:15 Info (Do NOT chart on this placeholder) 1 each PRN 1X PRN MC SEE COMMENTS; Start 06/10/17 at 22:00; Status UNV Diphtheria/ Tetanus/Acell Pertussis (Boostrix) 0.5 ml ONCE ONCE VAX IM Last administered on 06/11/17 10:27; Start 06/11/17 at 09:00; Stop 06/11/17 at 09 :01; Status DC Influenza Virus Vaccine Quadrival (Fluarix Quad [id number] Syringe) 0.5 ml ONCE ONCE VAX IM Last administered on 06/11/17 10:23; Start 06/11/17 at 09:00; Stop 06/11/17 at 09:01; Status DC Multivit/ Folic Acid/Iron (Multivitamin ) 1 tab DAILY PO Last administered on 06/11/17t 10:18; Start 06/11/17 at 10:00 Ferrous Sulfate (Feosol) 325 mg DAILYWBKFT PO ; Start 06/11/17 at 10:00 Active Scripts Active Macrobid 100 Mg Capsule (Nitrofurantoin Monohyd/M-Cryst) 100 Mg Capsule 1 Cap PO BID Reported Ferrous Sulfate 325 Mg Tablet 325 Mg PO Tablet (Pnv Cmb#95/Ferrous Fumarate/Fa) 1 Each Tablet 1 Each PO Vitals/I & O Vital Sign - Last 24 Hours 06/10/17 06/10/17 06/10/17 06/10/17 15:30 17:48 20:15 21:25 Temp 98.5 97.9 98.2 98.5 97.9 98.2 Pulse 70 70 73 Resp 20 20 18 18 B/P (MAP) 128/87 (101) 121/84 (96) 121/58 (79) Pulse Ox 98 98 O2 Delivery Room Air Room Air 06/11/17 06/11/17 06/11/17 01:32 05:12 11:39 Temp 98.3 97.8 98.1 98.3 97.8 98.1 Pulse 90 92 72 Resp 18 18 18 B/P (MAP) 117/79 (92) 99/61 (74) 128/91 (103) Pulse Ox 97 98 100 O2 Delivery Room Air Room Air Room Air TREY PRAKASH MD Jun 11, 2017 11:58
[2017-06-11 23:06] VITALS: BP 128/90
[2017-06-12 06:08] VITALS: BP 126/83
[2017-06-12] MEDS ORDERED: FERROUS SULFATE 325 MG TABLET. PO SCH (08:00)
[2017-06-12] MEDS: PRENATAL MULTIVITAMIN TABLET. PO SCH (09:01)
[2017-06-12] MEDS: IBUPROFEN 800 MG TABLET. PO PRN (09:02)
--- NOTE | 2017-06-12 12:25 | PDOC3 ---
OB DISCHARGE SUMMARY DATE OF ADMISSION: 06/10/17 DATE OF DISCHARGE: 06/12/17 REASON FOR ADMISSION: Onset of labor PROCEDURES: RHO (D) IG DISCHARGE DIAGNOSIS: Term Delivered DISCHARGE INFORMATION: Activity (no sexual activity 6 weeks), Diet (regular), Medications (see mrad) HOSPITAL COURSE Routine CONDITION AT DISCHARGE Stable TREY PRAKASH MD Jun 12, 2017 12:25
[2017-06-12 13:53] VITALS: BP 131/85
== END 2017-06-12 16:31 | disposition home or self-care (01) | DRG 775 ==
LOC: 3 SO LND 14:41 → OBSVTOIN 16:18 → 3 NORTH 20:15
PROVIDERS: ADMIT Family Medicine; ATTEND Family Medicine
PROC: 10E0XZZ Delivery of Products of Conception, External Approach (ICD-10-PCS; principal; 2017-06-10)
PROC: 10907ZC Drainage of Amniotic Fluid, Therapeutic from Products of Conception, Via Natural or Artificial Opening (ICD-10-PCS; 2017-06-10)
PROC: 0UQMXZZ Repair Vulva, External Approach (ICD-10-PCS; 2017-06-10)
DX: O99.284 Endocrine, nutritional and metabolic diseases complicating childbirth (principal); O71.82 Other specified trauma to perineum and vulva; Z37.0 Single live birth; O99.824 Streptococcus B carrier state complicating childbirth; Z3A.36 36 weeks gestation of pregnancy
CPT/HCPCS: 36415; 84112; 85025; 85461; 86593; 86850; 86900; 86901; 90686; 90715; G0378; G0379; J2590; J2791; J3010; J7120